=== PATIENT | male | born 1940 | race Caucasian/White ===

== ENCOUNTER 2021-11-23 08:54 | Outpatient (CLI) | payer MEDICARE, BC ==
[2021-11-23 09:36] LABS: Estimated GFR-MDRD - POC Greater than 90
[2021-11-23] MEDS ORDERED: Iopamidol 370 76% 100 ML VIAL ONE (09:48)
== END 2021-11-23 08:55 | disposition home or self-care (01) ==
LOC: CT 08:54
PROVIDERS: ATTEND Urology
DX: R31.0 Gross hematuria (principal); N32.3 Diverticulum of bladder; M47.815 Spondylosis without myelopathy or radiculopathy, thoracolumbar region; M41.9 Scoliosis, unspecified; N32.89 Other specified disorders of bladder; K42.9 Umbilical hernia without obstruction or gangrene; Z96.0 Presence of urogenital implants
CPT/HCPCS: 74178; 82565; Q9967

== ENCOUNTER 2021-11-23 14:57 | Outpatient (CLI) | payer MEDICARE, BC | END 2021-11-23 14:58 | disposition home or self-care (01) | LOC: LABBT 14:57 | PROVIDERS: ATTEND Urology | DX: Z01.810 Encounter for preprocedural cardiovascular examination (principal) | CPT/HCPCS: 93005; 93010 ==

== ENCOUNTER 2021-11-26 09:14 | Observation (INO) | payer MEDICARE, BC ==
[2021-11-23 12:45] VITALS: BMI 25.8
[2021-11-23 15:56] LABS: Mean Corpuscular Hemoglobin 32.7 pg (27.0-33.0); Mean Corpuscular Volume 96.3 fl (81.2-95.1); Mean Platelet Volume 11.1 fl (7.4-10.4); Platelet Count 170 10x3/uL (150-450); RBC Distribution Width 12.6 % (11.5-14.5); Red Blood Cell (RBC) Count 4.28 10x6/uL (4.32-5.72); White Blood Cell (WBC) Count 8.7 10x3/uL (3.5-10.5)
[2021-11-23 16:18] LABS: Anion Gap 15 mmol/L (10-20); BUN (Urea Nitrogen) 17 mg/dL (8.4-25.7); Calc. Creatinine Clearance 0 mL/min (70-130); Calcium 8.9 mg/dL (7.8-10.44); Carbon Dioxide 25 mmol/L (23-31); Chloride 102 mmol/L (98-107); Glucose 113 mg/dL (83-110); Potassium 4.5 mmol/L (3.5-5.1); Sodium 137 mmol/L (136-145)
[2021-11-23 16:21] LABS: INR-International Normal Ratio 0.9; PTT 23.9 sec (22.0-33.0); Prothrombin Time 10.2 sec (9.5-12.1)
[2021-11-24 00:09] LABS: SARS-CoV-2 PCR by NAA Not Detected (NotDetected)
[2021-11-26] MEDS ORDERED: Iopamidol 45 ML ONE (12:40)
[2021-11-26] MEDS ORDERED: Phenylephrine 10 MG/ML VIAL ONE (12:50)
[2021-11-26] MEDS ORDERED: Ketamine 50 MG/ML (10ML VIAL) ONE (12:50)
[2021-11-26] MEDS ORDERED: Levofloxacin 500 mg/D5W 100 ml Premix Bag ONE (12:54)
[2021-11-26] MEDS ORDERED: Fentanyl 100 MCG/2 ML VIAL ONE (12:58)
[2021-11-26] MEDS ORDERED: Lidocaine 1% PF 5 ML VIAL ONE (13:01)
[2021-11-26] MEDS ORDERED: Rocuronium Bromide 10 MG/ML (10ML VIAL) ONE (13:01)
[2021-11-26] MEDS ORDERED: Glycopyrrolate 0.2 MG/ML 5 ML SYRINGE ONE (13:01)
[2021-11-26] MEDS ORDERED: PHENYLEPHRINE-NS 100 MCG/ML 10 ML SYRINGE ONE (13:01)
[2021-11-26] MEDS ORDERED: Dexamethasone 20 MG/5 ML VIAL ONE (13:01)
[2021-11-26] MEDS ORDERED: Ondansetron PF 4 MG/2 ML Vial ONE (13:01)
[2021-11-26] MEDS ORDERED: Lidocaine 1% MPF 2 ML VIAL ONE (13:03)
[2021-11-26] MEDS ORDERED: Furosemide 20 MG/2 ML VIAL ONE (13:57)
[2021-11-26] MEDS ORDERED: diphenhydrAMINE 50 MG/ML VIAL IVP PRN (14:27)
[2021-11-26] MEDS ORDERED: Morphine 2 MG/ML VIAL SLOW IVP PRN (14:27)
[2021-11-26] MEDS ORDERED: HYDROcodone/Acetaminophen 5/325 mg Tablet PO PRN ×2 (14:27)
[2021-11-26] MEDS ORDERED: Mag-Al 1200 mg/1200 mg/30 ML UDCUP PO PRN (14:27)
[2021-11-26] MEDS ORDERED: hydrALAZINE 20 MG/ML VIAL SLOW IVP PRN ×2 (14:27)
[2021-11-26] MEDS ORDERED: Morphine 4 MG/ML VIAL SLOW IVP PRN (14:27)
[2021-11-26] MEDS ORDERED: Sodium Chloride 0.9% 1,000 ML IV SCH (14:30)
[2021-11-26] MEDS ORDERED: Promethazine HCl 25 MG/ML VIAL IVPB PRN (14:34)
[2021-11-26] MEDS ORDERED: Promethazine HCl 25 MG/ML VIAL IM PRN (14:34)
[2021-11-26] MEDS ORDERED: PACU-Morphine 4MG/ML VIAL SLOW IVP PRN (14:34)
[2021-11-26 14:53] LABS: #Eosinphils 0.1 thou/uL (0.0-0.7); #Lymphocytes 0.9 thou/uL (1.20-3.40); #Monocytes 0.5 thou/uL (0.11-0.59); #Neutrophils 4.3 thou/uL (1.40-6.50); %Basophils 0.5 % (0.0-1.0); %Eosinophils 2.3 % (0.0-10.0); %Lymphocytes 14.6 % (21.0-51.0); %Monocytes 8.5 % (0.0-10.0); %Neutrophils 74.1 % (42.0-75.0); Hemoglobin 13.2 g/dL (14.0-18.0); Mean Corpuscular HGB CONC 32.6 g/dL (32.0-36.0); Mean Corpuscular Hemoglobin 34.1 pg (27.0-31.0); Mean Platelet Volume 8.6 fL (7.4-10.4); Platelet Count 124 thou/uL (130-400); RBC Distribution Width 11.3 % (11.5-14.5); Red Blood Cell (RBC) Count 3.86 mill/uL (4.70-6.10); White Blood Cell (WBC) Count 5.8 thou/uL (4.8-10.8)
[2021-11-26] MEDS ORDERED: BRIMONIDINE TARTRATE DT SCH (15:00)
[2021-11-26 15:13] LABS: Anion Gap 9 mmol/L (10-20); BUN (Urea Nitrogen) 10 mg/dL (8.4-25.7); Calc. Creatinine Clearance 100 mL/min (70-130); Calcium 8.7 mg/dL (7.8-10.44); Carbon Dioxide 23 mmol/L (23-31); Chloride 106 mmol/L (98-107); Glucose 115 mg/dL (83-110); Sodium 134 mmol/L (136-145)
[2021-11-26] MEDS: Docusate 100 MG CAP PO SCH (20:13)
[2021-11-26] MEDS: Famotidine/PF 20 mg/2ml Vial SLOW IVP SCH (20:13)
[2021-11-26] MEDS: Trospium 20 MG TAB PO SCH (20:13)
[2021-11-26] MEDS ORDERED: DorzolamidE/Timolol 2%/0.5% Ophth Soln 10 ml Bottle EA EYE SCH (21:00)
[2021-11-27 06:51] LABS: #Lymphocytes 0.5 thou/uL (1.20-3.40); #Monocytes 0.5 thou/uL (0.11-0.59); #Neutrophils 5.7 thou/uL (1.40-6.50); %Basophils 0.2 % (0.0-1.0); %Eosinophils 0.1 % (0.0-10.0); %Lymphocytes 7.3 % (21.0-51.0); %Monocytes 7.3 % (0.0-10.0); Hemoglobin 13.4 g/dL (14.0-18.0); Mean Corpuscular HGB CONC 32.7 g/dL (32.0-36.0); Mean Corpuscular Hemoglobin 35.2 pg (27.0-31.0); Mean Platelet Volume 9.1 fL (7.4-10.4); Platelet Count 144 thou/uL (130-400); RBC Distribution Width 11.3 % (11.5-14.5); White Blood Cell (WBC) Count 6.7 thou/uL (4.8-10.8)
[2021-11-27 07:10] LABS: Anion Gap 12 mmol/L (10-20); BUN (Urea Nitrogen) 9 mg/dL (8.4-25.7); Calc. Creatinine Clearance 97 mL/min (70-130); Calcium 8.7 mg/dL (7.8-10.44); Carbon Dioxide 21 mmol/L (23-31); Chloride 108 mmol/L (98-107); Glucose 124 mg/dL (83-110); Potassium 4.2 mmol/L (3.5-5.1); Sodium 137 mmol/L (136-145)
[2021-11-27] MEDS: Docusate 100 MG CAP PO SCH (08:40)
[2021-11-27] MEDS: Trospium 20 MG TAB PO SCH (08:40)
[2021-11-27] MEDS: Famotidine/PF 20 mg/2ml Vial SLOW IVP SCH (08:41)
[2021-11-27] MEDS ORDERED: Tamsulosin HCl 0.4 MG CAP PO SCH (09:00)
[2021-11-27] MEDS ORDERED: Finasteride 5 MG TAB PO SCH (09:00)
[2021-11-27] MEDS ORDERED: Multivitamin W/ Minerals 1 TAB PO SCH (09:00)
[2021-11-27] MEDS ORDERED: Atorvastatin Calcium 40 MG TAB PO SCH (09:00)
[2021-11-27 11:38] VITALS: BP 160/80; TEMP 98.2
== END 2021-11-27 13:40 | disposition home or self-care (01) ==
LOC: SDC 09:14 → SURG A 14:33
PROVIDERS: ADMIT Urology; ATTEND Urology
PROC: 0T5C8ZZ Destruction of Bladder Neck, Via Natural or Artificial Opening Endoscopic (ICD-10-PCS; principal; 2021-11-26)
DX: R31.0 Gross hematuria (principal); N40.1 Benign prostatic hyperplasia with lower urinary tract symptoms; C61 Malignant neoplasm of prostate; N32.89 Other specified disorders of bladder; N32.3 Diverticulum of bladder; R35.0 Frequency of micturition; I35.0 Nonrheumatic aortic (valve) stenosis; E78.00 Pure hypercholesterolemia, unspecified; I10 Essential (primary) hypertension; N52.9 Male erectile dysfunction, unspecified; Z79.82 Long term (current) use of aspirin; Z79.899 Other long term (current) drug therapy; Z20.822 Contact with and (suspected) exposure to COVID-19; Z01.810 Encounter for preprocedural cardiovascular examination; M47.815 Spondylosis without myelopathy or radiculopathy, thoracolumbar region; M41.9 Scoliosis, unspecified; K42.9 Umbilical hernia without obstruction or gangrene; Z96.0 Presence of urogenital implants
CPT/HCPCS: 52214; 80048 ×3; 85025 ×2; 85027; 85610; 85730; 86850; 86900; 86901; 96374; 96375; 96376; G0378 ×2; U0003; U0005; 36415; 74178; 82565; 93005; 93010; J1100; J1940; J1956; J2370; J2405; J3010; J7050; Q9967; S0028